=== PATIENT | female | born 1935 | race Caucasian/White ===

== ENCOUNTER 2018-08-10 08:53 | Day surgery (SDC) | payer OTHER ==
--- NOTE | 2018-08-04 11:37 | HP ---
Admitting History and Physical - Primary Care Physician PCP: Bartolo Crow - Admission Chief Complaint: Left breast cancer History of Present Illness: 82 year olf postmenapausal female with family H/O breast cancer and significant COPD and CHF on O2 who felt a palpable mass left breast in jun 2018. Mammogram and US 06/2018 showed 1.4x1.8x1.3 cm irregular mass 7:00 9cm FN. US core 06/2018 showed fragments of carcinoma insufficient for tumor receptors. History Source: Patient Limitations to Obtaining History: No Limitations, Other (Hearing impairment on O2 for CHF and COPD) - Past Medical History Cardiovascular: Yes: CHF (on O2), HTN Pulmonary: Yes: COPD, Pneumonia (after intubation) Gastrointestinal: Yes: GERD Musculoskeletal: Yes: Osteoarthritis Endocrine: Yes: Hypothyroidism - Past Surgical History Past Surgical History: Yes: Colectomy (2012 parial for ulcer and 2015 for CRC post op pnemonia intubated) Additional Past Surgical History: liver abscess 2017 right shoulder fx 2016 - Smoking History Smoking history: Former smoker Have you smoked in the past 12 months: No - Alcohol/Substance Use Hx Alcohol Use: Yes (social) Home Medications - Allergies Allergies/Adverse Reactions: Allergies Allergy/AdvReac Type Severity Reaction Status Date / Time acetaminophen [From Percocet] Allergy Verified 08/04/18 11:48 oxycodone [From Percocet] Allergy Verified 08/04/18 11:48 - Home Medications Home Medications (free text): omeprazole,KCL,levothyroxine,myyrbetriq, bystolicnitrfurantoin,O2,furesamide,albuterol,spiriva,baby ASA tylenol Family Disease History - Family Disease History Family Disease History: CA: Mother (breast ca 75) Other Family History: mat cousin breast ca 40 Physical Examination Constitutional: Yes: No Distress (on O2) Breast(s): Yes: Other (extremely ptotic D cup breast 2 cm palpable density 6 to 7:00 left breast without skin involvement no palapble adenopathy bilaterally) Problem List - Problems (1) Breast cancer, left breast Code(s): C50.912 - MALIGNANT NEOPLASM OF UNSPECIFIED SITE OF LEFT FEMALE BREAST Qualifiers: Breast location: lower inner quadrant of breast Patient sex: female Assessment/Plan Left breast wide excision ,lymphosintogram,sentenl node biopsy possible axillary node dissection
[2018-08-09 09:43] VITALS: BMI 33.4
[2018-08-10] MEDS ORDERED: BUPIVACAINE HCL/PF 0.5% (5MG/ML) 10 ML VIAL ONE ×2 (12:54→14:05)
[2018-08-10] MEDS ORDERED: PROPOFOL 20 ML ONE ×2 (12:55)
[2018-08-10] MEDS ORDERED: KETAMINE HCL 200 MG/20 ML VIAL ONE (12:56)
[2018-08-10] MEDS ORDERED: MIDAZOLAM HCL 2 MG/2 ML SINGLE DOSE VIAL ONE (12:56)
[2018-08-10] MEDS ORDERED: SUCCINYLCHOLINE CHLORIDE 200 MG/10 ML VIAL ONE (12:56)
[2018-08-10] MEDS ORDERED: ISOSULFAN BLUE 10 MG/ML VIAL SQ ONE (13:31)
[2018-08-10] MEDS ORDERED: LIDOCAINE HCL 2% (20ML MULTI-DOSE VIAL) NR ONE ×3 (13:32→14:15)
[2018-08-10] MEDS ORDERED: ceFAZolin SODIUM 1 GM VIAL IVPB ONE (13:48)
[2018-08-10] MEDS ORDERED: DEXAMETHASONE SOD PHOSPHATE 4 MG/1 ML VIAL ONE (13:49)
[2018-08-10] MEDS ORDERED: ceFAZolin SODIUM 1 GM VIAL ONE (13:49)
[2018-08-10] MEDS ORDERED: ONDANSETRON 4 MG/2 ML VIAL ONE (13:49)
[2018-08-10] MEDS ORDERED: BENZOIN/ALOE VERA/STORAX/TOLU 58 ML BOTTLE ONE (14:55)
[2018-08-10] MEDS ORDERED: KETOROLAC TROMETHAMINE 30 MG/1 ML VIAL IVPUSH PRN (15:18)
[2018-08-10] MEDS ORDERED: ONDANSETRON 4 MG/2 ML VIAL IVPUSH PRN (15:18)
--- NOTE | 2018-08-10 16:09 | OP ---
DATE OF OPERATION: 08/10/2018 PREOPERATIVE DIAGNOSIS: Left breast cancer 6 o'clock, overlapping regions. POSTOPERATIVE DIAGNOSIS: Left breast cancer 6 o'clock, overlapping regions. PROCEDURE: Left breast wide excision with sentinel lymph node biopsy. PRIMARY SURGEON: Nelda Crow MD CLINICAL MANAGER HOME CARE: JENISE Bean ANESTHESIA: Local with IV sedation. COMPLICATIONS: None. Briefly, the patient is an 82-year-old, G3, P3, postmenopausal white female with [place] and [place] descent, with a family history with her mother who had breast cancer at age 75, maternal cousin had breast cancer in her 40s. The patient has a personal history of CHF, COPD, hypertension, is on 2 L nasal cannula oxygen at home. She felt a mass in the lower aspect of the left breast. In June 2018, a mammography and ultrasound showed a 1.4 x 1.8 x 1.3 cm density around the 7 o'clock region in the left breast 9 cm from the nipple. Ultrasound-guided core biopsy performed on July 07 showed fragments of carcinoma. However, they could not run receptors due to the small amount of tumor. She was seen in the office, and she had this obvious cancer in the lower aspect of the left breast. No suspicious adenopathy. I reviewed the films. The patient absolutely was refusing further biopsy of the lesion and was not able to tolerate an MRI. I advised a wide excision with sentinel lymph node biopsy. The patient underwent preoperative clearance by her bulkhead carpenter and auxiliary engineer. Her vp global marketing [employer] felt that she should not get general anesthesia. She was brought in for the procedure on August 10, 2018, and with discussion with Anesthesia, they felt a regional block would not be adequate for the lower aspect of the left breast and felt that sedation with local anesthesia could be performed. The patient had a lymphoscintigraphy through a periareolar injection of technetium 99 prior to the surgery and was brought to the holding area. In the holding area, site verification was made, and informed consent was obtained. She was brought into the operating room and laid on the OR table in the supine position. Venodynes were placed on the lower extremities prior to induction. She received a gram of Ancef prior to incision. She was given IV sedation, and the left breast was sterilely prepped and draped in the usual fashion with the left axilla prepped in the field. Next, 3 mL of Lymphazurin blue were injected intradermally around the tumor and as well around the left breast nipple-areolar complex, and massage was instituted. Unfortunately, the radioactive dye did not travel well to the left axilla. There was no gamma counts found. We then gave local anesthesia just below the hair-bearing area of the left axilla with 2% lidocaine mixed with 0.25% Marcaine. Incision was made about 3 cm in length in the left axillary region. Dissection was undertaken, and blue lymphatic was easily seen coursing to a blue lymph node which was excised and sent to pathology as sentinel lymph node number 1. No other blue nodes were found, and there was no radioactive dye found in the left axilla. Hemostasis was achieved, and the axillary wound was closed using interrupted 2-0 plain suture. The skin was closed using interrupted 3-0 deep dermal Vicryl suture and a running 4-0 subcuticular Biosyn suture. At this point, the wide excision was undertaken around the palpable mass around the 6 o'clock region of the left breast. Again, local anesthesia with 0.50% Marcaine, 0.50% lidocaine was injected around the tumor. A crescent incision was made on the lower aspect of the left breast with a small ellipse of skin removed with the wide excision. Dissection was undertaken around the palpable mass all the way down to the pectoralis major muscle using local anesthesia to perform the wide excision. The specimen was removed and oriented with a long lateral/short superior suture, and specimen radiographs showed removal of the clip in question. At this point, separate margins were taken on the superior, inferior, medial, lateral, and deep aspects with a suture marking the biopsy cavity side, and each margin was sent separately to pathology in formalin with a suture marking the biopsy cavity side. Hemostasis was achieved. The breast parenchyma was then reapproximated using 2-0 plain suture. The skin was closed using interrupted 3-0 deep dermal Vicryl suture and a running 4-0 subcuticular Biosyn suture. Mastisol and Steri-Strips were applied over the wounds with a compressive dressing placed over this. She was placed in a surgical bra postoperatively. She was awake and alert at the end of the procedure. The patient would like to be discharged home the same day once discharge criteria are met or maybe a 23-hour short stay depending on how she does postoperatively. Again, all sponge and needle counts were correct at the end of the case, and estimated blood loss was about 20 mL. She was hemodynamically stable throughout with saturation of about 90% on 2 L nasal cannula room air at the end of the case. NELDA CROW M.D. NICOL/[id number]
[2018-08-10] MEDS: ACETAMINOPHEN 1000 MG/100 ML VIAL (NON FORMULARY) IVPB ONE ×2 (16:20→23:02)
[2018-08-10] MEDS ORDERED: ACETAMINOPHEN INJECTION 100 ML IVPB ONE (16:30)
[2018-08-10] MEDS: DEXTROSE 5%-0.45% SALINE 1,000 ML IV SCH (22:40)
[2018-08-11] MEDS: DEXTROSE 5%-0.45% SALINE 1,000 ML IV SCH (01:27)
[2018-08-11 07:37] VITALS: BP 119/59; PULSE 67; TEMP 98.1
--- NOTE | 2018-08-16 09:16 | PATH ---
Surgical Pathology Report Patient Name: ADAM HARDY [facility]. Rec. #: [id number] /Age/Gender: 1935 (Age: 82) / F Account: [id number] Location: AMBULATORY SURG Taken: 08/10/2018 Received: 08/10/2018 Reported: 08/16/2018 Physicians: Bartolo Crow M.D. Specimen(s) Received A: BREAST MASTECTOMY WITH LYMPH NODES B: SENTINEL LYMPH NODE C: LEFT BREAST EXCISION SUPERIOR D: LEFT BREAST EXCISION LATERAL E: LEFT BREAST EXCISION INFERIOR F: LEFT BREAST EXCISION MEDIAL G: LEFT BREAST EXCISION DEEP Clinical History Left breast cancer Final Diagnosis A. LEFT BREAST, WIDE EXCISION: INVASIVE DUCTAL CARCINOMA, POORLY DIFFERENTIATED (TUBULE SCORE 3/3, NUCLEAR GRADE: 3/3, MITOTIC SCORE: 3/3, TOTAL SCORE 9/9, AURELIA GRADE 3), MEASURING 1.7 CM IN GREATEST DIMENSION, MICROSCOPICALLY. DUCTAL CARCINOMA IN SITU (DCIS) PRESENT, HIGH NUCLEAR GRADE, SOLID PATTERN. SURGICAL MARGINS ARE UNINVOLVED BY CARCINOMA. INVASIVE CARCINOMA IS AT LESS THAN 1 MM FROM THE CLOSEST (INFERIOR) MARGIN. DCIS IS AT 8 MM FROM THE CLOSEST (INFERIOR) MARGIN. ALSO SEE SPECIMENS C TO G FOR FINAL MARGINS. NO LYMPHOVASCULAR INVASION IS IDENTIFIED. PRIOR BIOPSY SITE WITH REACTIVE CHANGES. PATHOLOGIC STAGE (pTNM): pT1c, pN0 SEE ALSO INVASIVE CARCINOMA CASE SUMMARY BELOW. B. LEFT AXILLA SENTINEL LYMPH NODES, EXCISION: ONE LYMPH NODE, NEGATIVE FOR METASTATIC CARCINOMA (0/1). C. LEFT BREAST SUPERIOR MARGIN, EXCISION: BREAST TISSUE WITH FOCAL ATYPICAL DUCTAL HYPERPLASIA (ADH). NEGATIVE FOR CARCINOMA. D. LEFT BREAST LATERAL MARGIN, EXCISION: BENIGN BREAST TISSUE. E. LEFT BREAST INFERIOR MARGIN, EXCISION: BENIGN BREAST TISSUE. F. LEFT BREAST MEDIAL MARGIN, EXCISION: BENIGN BREAST TISSUE. G. LEFT BREAST DEEP MARGIN, EXCISION: BENIGN BREAST TISSUE. Comments Breast Invasive Carcinoma: Surgical Pathology Case Summary (Based on AJCC TNM 8 th edition) Procedure _x_ Excision (less than total mastectomy) Specimen Laterality _x_ Left Tumor Size Greatest dimension of largest invasive focus >1 mm (specify exact measurement) (millimeters): 17 mm Histologic Type _x _ Invasive carcinoma of no special type (ductal, not otherwise specified) Histologic Grade (Aurelia Histologic Score) Glandular (Acinar)/Tubular Differentiation _x_ Score 3 (<10% of tumor area forming glandular/tubular structures) Nuclear Pleomorphism _x_ Score 3 Mitotic Rate _x_ Score 3 Overall Grade _x_ Grade 3 (scores of 8 or 9) Tumor Focality __x_ Single focus of invasive carcinoma Ductal Carcinoma In Situ (DCIS) _x_ DCIS is present in specimen _x_ Negative for extensive intraductal component (EIC) Margins Invasive Carcinoma Margins _x_ Uninvolved by invasive carcinoma Distance from closest margin (millimeters): <1mm Closest margin: Inferior margin, also see specimen E for final inferior margin DCIS Margins _x_ Uninvolved by DCIS Distance from closest margin (millimeters): 8 mm Closest margin: Inferior margin, also see specimen E for final inferior margin Regional Lymph Nodes Number of Lymph Nodes with Macrometastases (>2 mm): 0 Number of Lymph Nodes with Micrometastases (>0.2 mm to 2 mm and/or >200 cells): 0 Number of Lymph Nodes with Isolated Tumor Cells (=0.2 mm and =200 cells): 0 Extranodal Extension: _x_ Not identified Number of Lymph Nodes Examined: 1 Number of Armada Nodes Examined : 1 Treatment Effect _x_ No known presurgical therapy Lymphovascular Invasion _x_ Not identified Pathologic Stage Classification (pTNM, AJCC 8th Edition) Primary Tumor (Invasive Carcinoma) (pT) _x_ pT1c: Tumor >10 mm but =20 mm in greatest dimension Regional Lymph Nodes (pN) Modifier (required only if applicable) _x_ (sn): [place] node(s) evaluated. Category (pN) _x_ pN0: No regional lymph node metastasis identified or ITCs only Biomarker Studies Results of ER and ND studies performed on this specimen (block# A2) at [facility] are as follows: ER (clone [id number] mouse monoclonal antibody by [employer]): 100% nuclear staining with strong intensity (Positive). ND (clone16 mouse monoclonal antibody by [employer]): 100% nuclear staining with strong intensity (Positive). Results of Her2 and Ki67 studies will be reported separately in an addendum. Positive and negative controls (internal if applicable) show appropriate results. Formalin fixation and cold ischemic times are within current ASCO/CAP recommendations for ER, ND and Her2 testing. Electronically Signed David Woods M.D. Gross Description A. Received fresh, labeled "left breast wide excision, suture rachel long lateral, short superior" is a piece of 45 grams, 5.5 x 5 x 2.0cm. hollis-yellow, irregular, portion of fibroadipose tissue. No needle localization wire present. There is a short suture marking the superior aspect and a long suture marking the lateral aspect, per the surgeon. There is a portion of skin present at the anterior aspect. No nipple present. The specimen is inked as follows: superior: red, lateral blue; inferior yellow; medial green; deep black. The specimen is serially sectioned from superior to inferior. Sectioning reveals a mass measuring 1.7cm in greatest dimension, the mass is close to inferior margin (less than 1mm), 2mm to superior margin, 1cm to lateral margin, 1cm to skin, and 2cm to posterior margin. The remaining breast parenchyma displays multifocal white fibrous tissue. Focal hemorrhagic area is present. Dough Brake Machine Operator sections are submitted in 9 cassettes as follows: 1, 2-superior margin and inferior margin with tumor; 3-mass with skin 4-mass to lateral margin 5-mass to medial margin 6-mass to posterior margin 7,8-hemorrhagic area 9-skin Time from tissue taken to put in formalin: less than 1hour Formalin fixation time: 6 hours [facility]/08/10/2018 B. Received in formalin labeled "sentinel lymph node," is a 3 x 1.5 x 1 pink-hollis soft tissue consistent with a lymph node. Cute surface is unremarkable. The specimen is entirely and sequentially submitted in 2 cassettes. C. Received in formalin labeled "left breast superior margin," is a 2.5 x 1.5 x 1 cm portion of fibroadipose tissue with a suture marking the biopsy cavity side, per the surgeon. The new margin is inked black and the specimen is serially sectioned. The specimen is entirely and sequentially submitted in 2 cassettes. D. Received in formalin labeled "left breast lateral margin," is a 2.5 x 2 x 1 cm portion of fibroadipose tissue with a suture marking the biopsy cavity side, per the surgeon. The new margin is inked black and the specimen is serially sectioned. The specimen is entirely and sequentially submitted in 4 cassettes. E. Received in formalin labeled "left breast inferior margin," is a 2 x 1.5 x 1 cm portion of fibroadipose tissue with a suture marking the biopsy cavity side, per the surgeon. The new margin is inked black and the specimen is serially sectioned. The specimen is entirely and sequentially submitted in 2 cassettes. F. Received in formalin labeled "left breast medial margin," is a 2.5 x 2 x 1 cm portion of fibroadipose tissue with a suture marking the biopsy cavity side, per the surgeon. The new margin is inked black and the specimen is serially sectioned. The specimen is entirely and sequentially submitted in 2 cassettes. G. Received in formalin labeled "left breast deep margin," is a 2.5 x 2 x 1 cm portion of fibroadipose tissue with a suture marking the biopsy cavity side, per the surgeon. The new margin is inked black and the specimen is serially sectioned. The specimen is entirely and sequentially submitted in 4 cassettes. IMTIAZ/08/11/2018 patrick08/10/2018
== END 2018-08-11 12:20 | disposition home or self-care (01) ==
LOC: JASUSAT 08:53 → JASU-SURG 08:53 → J8W 18:22 → JASUSAT 08-11 12:20
PROVIDERS: ATTEND Surgery Surgical Oncology
PROC: 0HBU0ZX Excision of Left Breast, Open Approach, Diagnostic (ICD-10-PCS; principal; 2018-08-10 13:00)
PROC: 0HBU0ZZ Excision of Left Breast, Open Approach (ICD-10-PCS; 2018-08-10 13:00)
DX: C50.812 Malignant neoplasm of overlapping sites of left female breast (principal); J44.9 Chronic obstructive pulmonary disease, unspecified; Z99.81 Dependence on supplemental oxygen; I10 Essential (primary) hypertension; E11.9 Type 2 diabetes mellitus without complications
CPT/HCPCS: 78195-TC; 82962; 88305-TC; 88307-TC; 88309-TC; 88342-TC; 94760; A9541; J0131